=== PATIENT | male | born 1985 | race Hispanic/Latino ===

== ENCOUNTER 2022-06-25 08:21 | Emergency (ER) | payer SELFPAY ==
[2022-06-25] VITALS (10 sets, daily range): BP systolic 109–142; BP diastolic 72–96
[~2022-06-25] VITALS: Ht 160 cm; Wt 95.0 kg
[2022-06-25] MEDS ORDERED: TAM75CAP PO (10:29)
== END 2022-06-25 10:52 | disposition home or self-care (01) | DRG 195 ==
LOC: ED 08:21
DX: J10.1 Influenza due to other identified influenza virus with other respiratory manifestations (principal); R04.0 Epistaxis; Z20.822 Contact with and (suspected) exposure to COVID-19